=== PATIENT | male | born 1975 | race Two or more races ===

== ENCOUNTER 2022-06-12 16:29 | Emergency (ER) | payer MEDICAID ==
[~2022-06-12] VITALS: Ht 167.6 cm; Wt 81.8 kg
[2022-06-12] MEDS ORDERED: cholesterol med PO (16:40)
[2022-06-12] MEDS ORDERED: [UNRECOGNIZED DRUG - REMARK] PO (16:40)
[2022-06-12] MEDS ORDERED: ACETAMINOPHEN 500 MG TABLET PO ONE (19:00)
[2022-06-12] MEDS ORDERED: KETOROLAC TROMETHAMINE 30 MG/ML VIAL IVP ONE (19:00)
[2022-06-12] MEDS ORDERED: LIDOCAINE 5% TRANSDERMAL PATCH TD ONE (19:00)
[2022-06-12 20:11] VITALS: BP 117/69
[2022-06-14 05:01] LABS: GLUCOMETER DEV NAME(LOC) ERT.5; GLUCOSE,POINT OF CARE 78 MG/DL (70-110)
== END 2022-06-12 20:14 | disposition home or self-care (01) ==
LOC: EMS 16:31
DX: M54.50 Low back pain, unspecified (principal); E11.9 Type 2 diabetes mellitus without complications; E78.00 Pure hypercholesterolemia, unspecified; V89.2XXA Person injured in unspecified motor-vehicle accident, traffic, initial encounter; Y93.89 Activity, other specified; Y92.89 Other specified places as the place of occurrence of the external cause; Y99.8 Other external cause status
CPT/HCPCS: 99283; 96374; 82962; J1885